=== PATIENT | male | born 1975 | race African-American/Black ===

== ENCOUNTER 2018-02-21 12:51 | Outpatient (CLI) | payer BC | END 2018-02-21 12:52 | disposition home or self-care (01) | LOC: BICRAD 12:51 | PROVIDERS: ATTEND Neurological Surgery | DX: M54.12 Radiculopathy, cervical region (principal); M43.22 Fusion of spine, cervical region; M50.30 Other cervical disc degeneration, unspecified cervical region | CPT/HCPCS: 72050 ==

== ENCOUNTER 2018-03-08 16:36 | Outpatient (CLI) | payer BC ==
[2018-03-08 17:14] LABS: Hemoglobin 15.6 g/dL (14.0-18.0); Mean Corpuscular HGB CONC 33.6 g/dL (32.0-36.0); Mean Corpuscular Hemoglobin 29.7 pg (27.0-31.0); Mean Corpuscular Volume 88.3 fl (80.0-94.0); Mean Platelet Volume 7.3 fL (7.4-10.4); Platelet Count 278 thou/uL (130-400); Red Blood Cell (RBC) Count 5.24 mill/uL (4.70-6.10); White Blood Cell (WBC) Count 9.4 thou/uL (4.8-10.8)
[2018-03-08 17:20] LABS: PTT 25.7 SEC (22.9-36.1); Prothrombin Time 13.5 SEC (12.0-14.7)
== END 2018-03-08 16:37 | disposition home or self-care (01) ==
LOC: LABBT 16:36
PROVIDERS: ATTEND Neurological Surgery
DX: Z01.812 Encounter for preprocedural laboratory examination (principal); M54.12 Radiculopathy, cervical region; M48.02 Spinal stenosis, cervical region
CPT/HCPCS: 85027; 85610; 85730

== ENCOUNTER 2018-03-12 09:56 | Day surgery (SDC) | payer BC ==
[2018-03-08 16:48] VITALS: BMI 21.9
[2018-03-12] MEDS ORDERED: CEFAZOLIN/Water 2 GM/20 ML SYRINGE ONE (10:57)
[2018-03-12] MEDS ORDERED: Sodium Chloride 0.9% 20 ML ONE (12:41)
[2018-03-12] MEDS ORDERED: Promethazine HCl 25 MG/ML VIAL ONE (13:10)
[2018-03-12] MEDS ORDERED: Midazolam HCl 2 mg/2 ml Vial ONE (13:10)
[2018-03-12] MEDS ORDERED: Fentanyl 250 MCG/5 ML VIAL ONE (13:10)
[2018-03-12] MEDS ORDERED: Thrombin 5000 UNITS/5 ML VIAL ONE (13:18)
[2018-03-12] MEDS ORDERED: Promethazine HCl 25 MG/ML VIAL IM PRN (15:46)
[2018-03-12] MEDS ORDERED: Promethazine HCl 25 MG/ML VIAL SLOW IVP PRN (15:46)
[2018-03-12] MEDS ORDERED: Ondansetron HCl/PF 4 MG/2 ML Vial IVP PRN (15:46)
[2018-03-12] MEDS ORDERED: Morphine Sulfate 2 MG/ML SYRINGE SLOW IVP PRN (15:46)
[2018-03-12] MEDS ORDERED: HYDROmorphone 2 MG/ML VIAL SLOW IVP PRN (15:46)
[2018-03-12] MEDS ORDERED: Meperidine HCl/PF 25 MG/ML VIAL SLOW IVP PRN (15:46)
[2018-03-12] MEDS ORDERED: Dexamethasone 20 MG/5 ML VIAL ONE (16:27)
[2018-03-12] MEDS ORDERED: Ondansetron HCl/PF 4 MG/2 ML Vial ONE (16:27)
[2018-03-12] MEDS ORDERED: Glycopyrrolate 0.2 MG/ML 5 ML SYRINGE ONE (16:27)
[2018-03-12] MEDS ORDERED: PROPOFOL 200 MG/20 ML VIAL ONE (16:27)
[2018-03-12] MEDS ORDERED: PHENYLEPHRINE-NS 100 MCG/ML 10 ML SYRINGE ONE (16:27)
[2018-03-12] MEDS ORDERED: Lidocaine 1% PF 5 ML VIAL ONE (16:27)
[2018-03-12] MEDS ORDERED: ePHEDrine/0.9% NaCl/PF SYRINGE 50 mg/10 ml ONE (16:27)
[2018-03-12] MEDS ORDERED: Morphine 4 MG/ML VIAL ONE (17:05)
[2018-03-12] MEDS ORDERED: HYDROcodone/Acetaminophen 5/325 mg Tablet ONE (17:18)
--- NOTE | 2018-03-12 18:02 | OP ---
DATE OF PROCEDURE: 03/12/2018 SURGEON: Curt Lora M.D. BASTER HAND: Satish Ott PA-C PREOPERATIVE INDICATION: Prevent neurological deterioration. PREOPERATIVE DIAGNOSES: Cervical intervertebral disk disease with instability at C4-C5 and stenosis, with radiculopathy and stenosis at C6-C7. POSTOPERATIVE DIAGNOSES: Cervical intervertebral disk disease with instability at C4-C5 and stenosis , with radiculopathy and stenosis at C6-C7. OPERATIVE PROCEDURE: Anterior cervical diskectomy, intervertebral arthrodesis, placement of interver tebral biomechanical device, local morselized autograft, morselized allograft, and anterior cervical plating at C4-C5 and at C6-C7, and operating microscope. PREOPERATIVE MEDICATIONS: Ancef 2 grams IV. DRAIN NUMBER: Zero. DRAIN TYPE: None. OPERATIVE DICTATION: The patient was brought to the operating room. General endotracheal anesthesia was induced. The patient's head was carefully positioned on a gel-filled donut shaped head rest and a lateral fluoro radiograph was used to plan our incision. The right side of the neck was sterilely prepped and draped. We opened with a 10 blade knife and controlled bleeding with bipolar cautery. We dissected sharply to the platysma and cut this muscle in line with our incision. We continued our dissection medial to the sternocleidomastoid and lateral to the trachea and esophagus. We arrived a t the prevertebral space and placed a marker at C6-C7. We took a lateral fluoro radiograph to confir m the level upon which we were operating. We then elevated the longus colli muscles off the anterior surface of C4 and C5 as well as C6 and C7. We placed self-retaining retractors under the longus col li muscles at C4-C5 and placed a distraction pin at C4 and C5. We distracted across the intervening interspace. We incised the interspace with a 15 blade knife and removed disk contents using curettes and rongeurs. As we approached the posterior longitudinal ligament, we brought the operative micros cope into the field. Under microscopic magnification using microsurgical techniques, we removed the remainder of the inter vertebral disk. We accessed the ventral epidural space with a micro curette. We removed posterior o steophytes and the posterior longitudinal ligament across the entire interspace at C4-C5, decompressi ng both the dura and the spinal canal, and both nerve roots in their foramina. We then turned our at tention to arthrodesis. We used angled curettes to prepare the endplates for grafting and then used a bone rasp to measure th e height of the interspace. A 6 mm PEEK graft was brought into the field. Osteophytes removed durin g our decompression were carefully morselized on the back table. This morselized bone (cleaned of al l soft tissue attachments) was added to demineralized bone matrix as our fusion substrate and the sub strate was placed in the intervertebral graft. The graft was advanced into the interspace to the rudy ropriate depth under radiographic guidance. We removed distraction pins from C4 and C5 and moved the m to C6 and C7 as well as the lateral retractor. We distracted across this interspace, incised it an d removed disk contents. We continued removing disk until we approached the posterior longitudinal l igament. Posterior osteophytes as well as the ligament were removed across the entire interspace at C6-C7 decompressing the spinal canal, the dura and the nerve roots in their foramina. We prepared th e endplates for grafting and measured the height of the interspace to 6 mm. Another 6 mm PEEK graft was brought into the field. It was loaded with demineralized bone matrix and morselized autograft an d advanced into the interspace under radiographic guidance. Distraction pins were removed from C6 an d C7. Two separate 12 mm anterior cervical plates were brought into the field. We affixed the plate at C4-C5 and at C6-C7 using 14 mm screws. Fixed angle screws were used at C5 and C7 and variable an gle screws at C4 and C6. AP and lateral fluoro radiographs confirmed adequate position of our instru mentation. We irrigated copiously, bacitracin irrigation. We closed the wound in anatomic layers an d we applied a sterile dressing. This was a clean case and no contamination.
== END 2018-03-12 18:45 | disposition home or self-care (01) ==
LOC: SDC 09:56
PROVIDERS: ATTEND Neurological Surgery
PROC: 0RG20A0 Fusion of 2 or more Cervical Vertebral Joints with Interbody Fusion Device, Anterior Approach, Anterior Column, Open Approach (ICD-10-PCS; principal; 2018-03-12)
DX: M50.123 Cervical disc disorder at C6-C7 level with radiculopathy (principal); M48.02 Spinal stenosis, cervical region
CPT/HCPCS: 76001; 96374; A4216; C1713; C1776; J1100; J2001; J2250; J2270; J2405; J2550; J2704; J3010; J3490

== ENCOUNTER 2018-04-29 13:40 | Outpatient (CLI) | payer BC ==
--- NOTE | 2018-04-29 15:17 | RAD ---
CERVICAL SPINE SERIES 3 VIEWS: HISTORY: Followup with neck surgery. FINDINGS: The patient has undergone an anterior cervical fusion with placement of plate and screws at C4-5 and C6-7. Markers of implants are within the confines of the disk level. There is what are probably con genital changes across the C5-6 level. IMPRESSION: Postoperative changes of the spine. POS: SRAVAN
== END 2018-04-29 13:41 | disposition home or self-care (01) ==
LOC: TBSIIMAG 13:40
PROVIDERS: ATTEND Neurological Surgery
DX: M54.2 Cervicalgia (principal); Z98.890 Other specified postprocedural states
CPT/HCPCS: 72040